=== PATIENT | male | born 1990 | race Caucasian/White ===

== ENCOUNTER 2025-06-17 20:04 | Emergency (ER) | payer BC ==
[~2025-06-17] VITALS: Ht 180.3 cm; Wt 79.0 kg
[2025-06-17 20:23] VITALS: O2SAT 100
[2025-06-17 22:22] LABS: BASOPHILS % 0.6 % (0.0-2.0); EOSINOPHILS % 2.0 % (0.0-5.0); HEMATOCRIT. 42.3 % (42.0-52.0); HEMOGLOBIN. 14.6 g/dL (14.0-18.0); LYMPHOCYTES % 25.8 % (20.0-50.0); MEAN PLATELET VOLUME 10.5 fl (7.4-10.4); MONOCYTES % 9.5 % (2.0-8.0); NEUTROPHILS % 62.1 % (40.0-76.0); PLATELET 149 x1000/uL (130-400); RED BLOOD CELL COUNT 5.00 mill/uL (4.7-6.1); RED CELL DISTRIBUTION WIDTH 12.9 % (11.6-14.6)
[2025-06-17 22:23] LABS: CLARITY URINE CLEAR (CLEAR); COLOR URINE YELLOW (YELLOW); GLUCOSE URINE NEGATIVE (NEGATIVE); KETONES URINE NEGATIVE (NEGATIVE); LEUKOCYTE ESTERASE URINE TRACE (NEGATIVE); NITRITE URINE NEGATIVE (NEGATIVE); OCCULT BLOOD URINE NEGATIVE (NEGATIVE); PH URINE 6.5 (4.5-8.0); PROTEIN URINE NEGATIVE (NEGATIVE); SPECIFIC GRAVITY URINE 1.011 (1.005-1.030); UROBILINOGEN URINE 0.2 E.U./dL (0.2-1.0)
[2025-06-17] MEDS: KETOROLAC 15MG/ML VIAL IM ONE (22:35)
[2025-06-17 22:36] LABS: CREATININE 0.8 mg/dL (0.6-1.3); UREA NITROGEN BLOOD 5 mg/dL (9-23)
[2025-06-17 22:37] LABS: ASPARTATE AMINOTRANSFERASE 22 IU/L (<34)
[2025-06-17 22:38] LABS: BILIRUBIN DIRECT 0.3 mg/dL (<=3.0); BILIRUBIN TOTAL 1.1 mg/dL (0.1-1.0); PROTEIN TOTAL 7.8 g/dL (6.0-8.3)
[2025-06-17 23:06] LABS: BACTERIA URINE TRACE; RBC URINE NONE SEEN /hpf (0-2); SQUAMOUS EPITHELIAL CELL URINE RARE /lpf (RARE/1+); WBC URINE 0-2 /hpf (0-2)
[2025-06-17 23:32] VITALS: BP 117/70; PULSE 75; RESP 18; TEMP 36.8; O2SAT 98
[2025-06-17] MEDS ORDERED: SULF1TAB48 MT (23:47)
[2025-06-18] MEDS ORDERED: DOXY100C5 PO (07:58)
== END 2025-06-18 | disposition home or self-care (01) ==
LOC: ER 20:04
DX: R30.0 Dysuria (principal); Z79.899 Other long term (current) drug therapy
CPT/HCPCS: 99283; 80076; 80048; 81003; 85025; 36415; 96372; J1885

== ENCOUNTER 2025-06-18 06:40 | Emergency (ER) | payer BC ==
[~2025-06-18] VITALS: Ht 180.3 cm; Wt 79.0 kg
[~2025-06-18 06:40] MED LIST: SULF1TAB48 MT
[2025-06-18 06:50] VITALS: O2SAT 99
[2025-06-18] MEDS ORDERED: CEFTRIAXONE SODIUM 500MG VIAL IM ONE (07:30)
[2025-06-18] MEDS ORDERED: DOXYCYCLINE HYCLATE 100MG CAPSULE PO ONE (07:30)
[2025-06-18] MEDS ORDERED: DOXY100C5 PO (07:58)
[2025-06-18] MEDS: CEFTRIAXONE SODIUM 500MG VIAL IM NR (08:25)
[2025-06-18] MEDS: DOXYCYCLINE HYCLATE 100MG CAPSULE PO NR (08:25)
[2025-06-18 08:30] VITALS: BP 121/76; PULSE 85; RESP 16; TEMP 36.7; O2SAT 99
[2025-06-20 06:12] LABS: CHLAMYDIA TRACHOMATIS NAA Negative (Negative); NEISSERIA GONORRHOEAE NAA Negative (Negative)
== END 2025-06-18 08:55 | disposition home or self-care (01) ==
LOC: ER 06:40
DX: R30.0 Dysuria (principal); Z79.899 Other long term (current) drug therapy
CPT/HCPCS: 99283; 87491; 87591; 96372; J0696